=== PATIENT | male | born 1945 | race Caucasian/White ===

== ENCOUNTER 2016-07-14 17:57 | Emergency (ER) | payer OTHER ==
[~2016-07-14] VITALS: Ht 182.9 cm; Wt 84.4 kg
[2016-07-14 18:21] VITALS: Ht 182.9 cm; Wt 84.4 kg
--- NOTE | 2016-07-14 20:11 | EMERGENCY ROOM VISIT NOTE ---
History Report prepared by Jason: Poli Rapp Under the Supervision of: Dr. Arturo Badillo D.O. First contact with patient: 19:33 Chief Complaint: URINARY SYMPTOMS Stated Complaint: URINARY RETENTION,BURN Nursing Triage Summary: they removed a urinary catheter last . they put me on pyridium culture is negative. Edgar on antibiotics. painful to urinate. taking tylenol for intermittent fevers. tylenol taken at 4 pm today History of Present Illness The patient is a 70 year old male who presents to the Emergency Room with complaints of difficulty urinating that began one week prior to arrival. He is also complaining of persistent fevers of 101 degrees orally. He rates his pain with urination as a 10/10 in severity. The patient had a Andrew catheter removed one week ago that was placed following surgery for an abdominal aneurysm. There was no fistula. Two stents were placed during this surgery. Now the patient cannot urinate without exertion and his volume of void is decreased. He is also complaining of testicular pain when he sits down. Source of History: patient Onset: 1 week [employer] Position: other (Genitourinary) Symptom Intensity: 10/10 Associated Symptoms: + fevers Note: Testicular pain when sitting Review of Systems See above for pertinent positives & negatives. A total of 10 systems reviewed and were otherwise negative. Past Medical & Surgical AAA (abdominal aortic aneurysm) Family History Diabetes mellitus Heart disease Social History Smoking Status: Never Smoker Marital Status: Housing Status: lives with significant other Occupation Status: retired Current/Historical Medications Scheduled Alfuzosin Hcl (Uroxatral), 10 MG PO QAM Aspirin (Aspirin Ec), 81 MG PO QAM Clopidogrel (Plavix), 75 MG PO QAM Docusate Sodium (Docusate Sodium), 1 CAP PO BID Dutasteride (Avodart), 0.5 MG PO QAM Esomeprazole Magnesium (Nexium), 40 MG PO QAM Glucosamine-Chondroitin (Osteo Bi-Flex Regular Str), 1 TAB PO QAM Lisinopril (Lisinopril), 5 MG PO QAM Magnesium Oxide (Mag-Ox), 400 MG PO BID Rosuvastatin Calcium (Crestor), 5 MG PO QAM Scheduled PRN Oxycodone/Acetaminophen 5MG/325MG (Percocet 5MG/325MG), 1 TABLET PO Q4H PRN for Pain Allergies Coded Allergies: Gluten (Verified Allergy, Severe, GI UPSET, 07/14/16) Physical Exam Vital Signs Date Time Temp Pulse Resp B/P Pulse Ox O2 Delivery O2 Flow Rate FiO2 07/14/16 22:11 57 18 125/65 95 Room Air 07/14/16 18:21 36.6 63 18 114/72 96 Room Air Physical Exam GENERAL: Patient is well appearing and in no acute distress. HEENT: No acute trauma, normocephalic atraumatic, mucous membranes moist, no nasal congestion, no scleral icterus. NECK: No stridor, no adenopathy, no meningismus, trachea is midline. LUNGS: No dyspnea. Clear to auscultation and equal bilaterally. No wheeze, no rhonchi. HEART: Regular rate and rhythm. No murmurs, rubs, gallops appreciated. ABDOMEN: There is an incision in the RLQ, well approximated, clean, dry, and intact. Soft, nontender, bowel sounds positive, no masses appreciated, no peritonitis. BACK: No midline tenderness, no CVA tenderness EXTREMITIES: Normal motion all extremities, no cyanosis, no edema. NEUROLOGIC: Alert and oriented, no acute motor or sensory deficits, no focal weakness, cranial nerves grossly intact. SKIN: No rash, no jaundice, no diaphoresis. GENITOURINARY: Normal circumcised male. Bruising over the shaft of his penis. No hernia on exam. Medical Decision & Procedures Laboratory Results 07/14/16 20:20 Red Blood Count 3.86, Mean Corpuscular Volume 89.6, Mean Corpuscular Hemoglobin 30.8, Mean Corpuscular Hemoglobin Concent 34.4, Mean Platelet Volume 9.8, Neutrophils (%) (Auto) 60.3, Lymphocytes (%) (Auto) 21.4, Monocytes (%) (Auto) 17.2, Eosinophils (%) (Auto) 0.6, Basophils (%) (Auto) 0.1, Neutrophils # (Auto ) 6.28, Lymphocytes # (Auto) 2.23, Monocytes # (Auto) 1.79, Eosinophils # (Auto ) 0.06, Basophils # (Auto) 0.01 07/14/16 20:20 Test 07/14/16 20:15 07/14/16 20:20 Urine Color DK YELLOW Urine Appearance CLEAR (CLEAR) Urine pH 7.0 (4.5-7.5) Urine Specific Joes 1.012 (1.000-1.030) Urine Protein NEG (NEG) Urine Glucose (UA) NEG (NEG) Urine Ketones NEG (NEG) Urine Occult Blood NEG (NEG) Urine Nitrite NEG (NEG) Urine Bilirubin NEG (NEG) Urine Urobilinogen NEG (NEG) Urine Leukocyte Esterase NEG (NEG) White Blood Count 10.41 K/uL (4.8-10.8) Red Blood Count 3.86 M/uL (4.7-6.1) Hemoglobin 11.9 g/dL (14.0-18.0) Hematocrit 34.6 % (42-52) Mean Corpuscular Volume 89.6 fL (80-100) Mean Corpuscular Hemoglobin 30.8 pg (25-34) Mean Corpuscular Hemoglobin Concent 34.4 g/dl (32-36) Platelet Count 383 K/uL (130-400) Mean Platelet Volume 9.8 fL (7.4-10.4) Neutrophils (%) (Auto) 60.3 % Lymphocytes (%) (Auto) 21.4 % Monocytes (%) (Auto) 17.2 % Eosinophils (%) (Auto) 0.6 % Basophils (%) (Auto) 0.1 % Neutrophils # (Auto) 6.28 K/uL (1.4-6.5) Lymphocytes # (Auto) 2.23 K/uL (1.2-3.4) Monocytes # (Auto) 1.79 K/uL (0.11-0.59) Eosinophils # (Auto) 0.06 K/uL (0-0.5) Basophils # (Auto) 0.01 K/uL (0-0.2) RDW Standard Deviation 40.5 fL (36.4-46.3) RDW Coefficient of Variation 12.5 % (11.5-14.5) Immature Granulocyte % (Auto) 0.4 % Immature Granulocyte # (Auto) 0.04 K/uL (0.00-0.02) Anion Gap 8.0 mmol/L (3-11) Est Creatinine Clear Calc Drug Dose 91.6 ml/min Estimated GFR () 103.4 Estimated GFR (Non- 89.2 BUN/Creatinine Ratio 10.2 (10-20) Lactic Acid Level 2.1 mmol/L (0.4-2.0) Calcium Level 8.8 mg/dl (8.5-10.1) Total Bilirubin 0.3 mg/dl (0.2-1) Direct Bilirubin 0.1 mg/dl (0-0.2) Aspartate Amino Transf (AST/SGOT) 39 U/L (15-37) Alanine Aminotransferase (ALT/SGPT) 56 U/L (12-78) Alkaline Phosphatase 82 U/L (45-117) Total Protein 7.8 gm/dl (6.4-8.2) Albumin 2.7 gm/dl (3.4-5.0) Lipase 143 U/L (73-393) Laboratory results as reviewed by me. Medications Administered Medications (Trade) Dose Ordered Sig/Willian Route Start Time Stop Time Status Last Admin Dose Admin Hydromorphone HCl (Dilaudid Inj) 0.5 mg NOW STAT IV 07/14/16 21:18 07/14/16 21:20 DC 07/14/16 22:07 0.5 MG ED Course 1951: The patient was evaluated in room C10. A complete history and physical exam was performed. 2117: Ordered Dilaudid 0.5 mg IV. 2142: I checked on the patient at this time, he was resting in bed. Medical Decision Differential diagnosis: Etiologies such as torsion, mass, infection, hernia, hydrocele, epididymitis, trauma, intra-abdominal process, as well as others were entertained. Patient is a 70-year-old male who 8 days ago underwent an elective endovascular repair of a infrarenal AAA. During that time he had a Andrew catheter placed. 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 Since that time he has been seen by his primary care physician who completed a urine, has sent a urine culture which was reported to be normal and started on cefuroxime. He is on a twice a day dosing has taken a total of 6 doses. She has been taking his temperature which has been low grade, however earlier today he had a temp of 101 orally. He denies chest pain, shortness of breath, cough. His main complaint is burning with urination when he stands. He has not had significant relief with Pyridium that was previously prescribed by his primary care physician. He is able to eat, passing gas, and is able to urinate. He is having difficulty starting his urine stream and they're only small amounts. There is no reported hematuria Physical exam today the patient is not tachycardic he has clear lungs to auscultation there is no oxygen requirement. He is afebrile during his stay here. He has a small incision over the right lower quadrant which is clean dry and intact. There is no tenderness to palpation of the abdomen, no suprapubic tenderness. He has normal external male genitalia, there is purple ecchymoses around the shaft. He does not have an inguinal hernia. There is no ecchymoses and scrotum nor the peroneal area. There is no tenderness to palpation of the peroneal area, rectal exam was deferred. Laboratory examination did not reveal a white count, he has mild hyponatremia. He was given IV fluids. He is a patient of Dr. Bernstein. Dr. Ness was electronic equipment repairer for his service. I discussed the case with Dr. Ness, Dr. Ness stressed that his concern is that he has a fever of 101 without obvious source of urinary tract infection, and no elevated white count. His concern is possible source of infection. His recommendation is to change the patient's antibiotics to ciprofloxacin and given a dose of gentamicin. Patient was given 400 mg of ciprofloxacin IV, he has been loaded with 7 mg/kg of gentamicin IV, and his creatinine clearance is 96-99 placing his expected gentamicin dosing at 24 hours. Blood cultures and repeat urine culture were initially obtained. Patient's lactic acid is 2.1 which is not indicative of sepsis. There is no evidence of end organ dysfunction. The patient himself does not want to be admitted to the hospital. I've advised the patient to follow-up with the urology office tomorrow. The patient has been on Pyridium, I am not reordering the Pyridium due to the risk of inducing methemoglobinemia, I suspect his pre-existing anemia is postoperative blood loss due to the recent endovascular AAA repair. He also reports that the Pyridium has not done anything for his symptomatology. I have discussed reasons for follow-up extensively with the patient and his . He is discharged home in improved stable condition. Impression Primary Impression: Dysuria Additional Impressions: Fever Postoperative anemia Scribe Attestation The scribe's documentation has been prepared under my direction and personally reviewed by me in its entirety. I confirm that the note above accurately reflects all work, treatment, procedures, and medical decision making performed by me. Departure Information Dispostion Home / Self-Care Prescriptions Ciprofloxacin Hcl (CIPRO) 500 Mg Tab 500 MG PO BID, #28 TAB Prov: Arturo Badillo, D.O. 07/14/16 Referrals Chao Valdivia M.D. (PCP) Patient Instructions ED UTI Cystitis Male, My [facility] Additional Instructions Call the urology office tomorrow for follow-up. Return to the emergency department if you feel worse, have a fever greater than 100.5, cannot urinate, or any other concerns. Stop taking the Ceftin and take ciprofloxacin. Problem Qualifiers
[2016-07-14] MEDS ORDERED: DOCU100C31 PO (20:26)
[2016-07-14] MEDS ORDERED: OXYC-57 PO (20:26)
[2016-07-14] MEDS ORDERED: GLUCTAB18 PO (20:26)
[2016-07-14] MEDS ORDERED: LSN5 PO (20:26)
[2016-07-14] MEDS ORDERED: ROSU5TAB PO (20:26)
[2016-07-14] MEDS ORDERED: NXM/40 PO (20:26)
[2016-07-14] MEDS ORDERED: ASPI81TA28 PO (20:26)
[2016-07-14] MEDS ORDERED: DUTA0.5C PO (20:26)
[2016-07-14] MEDS ORDERED: CLOP1TAB15 PO (20:26)
[2016-07-14] MEDS ORDERED: MAGN400T6 PO (20:26)
[2016-07-14] MEDS ORDERED: ALFU10TA30 PO (20:26)
[2016-07-14 20:34] LABS: HEMATOCRIT 34.6 % (42-52); MEAN CELL VOLUME 89.6 fL (80-100); MEAN CORPUSCULAR HEMOGLOBIN 30.8 pg (25-34); MEAN CORPUSCULAR HGB CONC 34.4 g/dl (32-36); MEAN PLATELET VOLUME 9.8 fL (7.4-10.4); PLATELET COUNT 383 K/uL (130-400); RED BLOOD COUNT 3.86 M/uL (4.7-6.1); WHITE BLOOD COUNT 10.41 K/uL (4.8-10.8)
[2016-07-14 20:53] LABS: URINE APPEARANCE CLEAR (CLEAR); URINE BILIRUBIN NEG (NEG); URINE COLOR DK YELLOW; URINE NITRITE NEG (NEG); URINE SPECIFIC GRAVITY 1.012 (1.000-1.030); UROBILINOGEN NEG (NEG); ZZUR CULT IF INDIC CLEAN CATCH NO
[2016-07-14 20:54] LABS: BUN/CREATININE RATIO 10.2 (10-20); CALCIUM 8.8 mg/dl (8.5-10.1); CREATININE 0.8 mg/dl (0.60-1.40); POTASSIUM 4.3 mmol/L (3.5-5.1)
[2016-07-14 20:57] LABS: MANUAL MICROSCOPIC REQUIRED? NO; REVIEW REQ? NO
[2016-07-14 21:05] LABS: BASO % 0.1 %; BASO ABS # 0.01 K/uL (0-0.2); COMPLETE YES; EOS % 0.6 %; IG% 0.4 %; LYMPH % 21.4 %; LYMPH ABS # 2.23 K/uL (1.2-3.4); MONO % 17.2 %; NEUT % 60.3 %
[2016-07-14] MEDS ORDERED: HYDROmorphone INJ 0.5 MG/0.5 ML SYR IV STA (21:18)
[2016-07-14] MEDS ORDERED: CIPROFLOXACIN 400MG / 200ML D5W IV STA (22:32)
[2016-07-14] MEDS ORDERED: CIPR-255 PO (23:27)
[2016-07-14] MEDS ORDERED: GENTAMICIN INJ 600 MG in DEXTROSE 5% 100ML 100 ML IV STA (23:42)
[2016-07-14] MEDS ORDERED: SODIUM CHLORIDE 0.9% 1000ML 1,000 ML IV STA (23:51)
[2016-07-15 02:06] VITALS: BP 138/64; PULSE 59; TEMP 37.6; O2SAT 94
--- NOTE | 2016-07-15 06:40 | DIAGNOSTIC IMAGING REPORT ---
CHEST 2 VIEWS ROUTINE CLINICAL HISTORY: fever cough COMPARISON STUDY: No previous studies for comparison. FINDINGS: The bones soft tissues and hemidiaphragms are normal. The cardiomediastinal silhouette is normal. The lungs are clear. The pulmonary vasculature is normal. IMPRESSION: Negative chest. Electronically signed by: Gino Diaz M.D. 07/15/2016 6:38 AM Dictated Date/Time: 07/15/2016 6:37 AM
== END 2016-07-15 00:20 | disposition home or self-care (01) ==
LOC: C.EDB 17:58 → C.EDC 07-15 00:20
DX: R30.0 Dysuria (principal); R50.9 Fever, unspecified; D62 Acute posthemorrhagic anemia

== ENCOUNTER → 2017-04-06 | Outpatient (CLI) | payer OTHER ==
[~2017-04-06] MED LIST: ALFU10TA2 PO; ASPI81TA28 PO; CIPR-255 PO; CLOP1TAB15 PO; DOCU100C31 PO; DUTA0.5C PO; GADAVIST IV PRN; GLUCTAB18 PO; LSN5 PO; MAGN400T6 PO; NXM/40 PO; OXYC-57 PO; ROSU5TAB PO
--- NOTE | 2017-04-06 12:35 | DIAGNOSTIC IMAGING REPORT ---
PROSTATE MRI COMBO CLINICAL HISTORY: 71 years-old Male presenting with ELEVATED PSA. TECHNIQUE: Multisequence, multiplanar MR imaging of the prostate was performed before and after the administration of intravenous contrast. Additional postprocessing was performed on a separate [employer] workstation by the radiologist for 3-D volumetric segmentation of the prostate and contouring of region(s) of interest (ANNIKA) for targeting. IV contrast: 8 cc of Gadavist. COMPARISON: No priors.. FINDINGS: Prostate: The prostate measures 5.2 cm in transverse diameter. There is median lobe hypertrophy (JackrabbitaCAD prostate boundary segmentation volume 64.5 cc). Moderate to severe changes of benign prostatic hyperplasia are identified. Precontrast T1 weighted imaging demonstrates no evidence of intrinsic T1 hyperintensity to suggest hemorrhage. Seminal vesicles normal. Suspicious lesion(s) described below: Lesion (DynaCAD ANNIKA) 1: Location: Left anterior transition zone at the mid gland. The lesion does not extend across the midline. Size: 16 mm (as measured on ADC for PZ lesion and T2WI for TZ lesion) T2W: Ill-defined T2 hypointense. DWI: 2. Indistinct hypointense on ADC. DCE: Positive. Focal enhancement corresponding to a suspicious finding, earlier or contemporaneous with adjacent normal tissue. PI-RADS: 3. The presence of clinically significant cancer is equivocal. Bladder: The bladder wall is thickened and trabeculated consistent with chronic outlet obstruction. Bowel: Visualized portion of the rectum normal. Peritoneum: No free fluid in the pelvis. Fluid is noted along the right inguinal canal. Lymph nodes: No lymphadenopathy in the visualized portion of the pelvis. Vasculature: Iliac vessels patent. Osseous structures: Normal bone marrow signal intensity. IMPRESSION: 1. Question a lesion in the left anterior transition zone in the mid gland. PI-RADS 3. The presence of clinically significant cancer is equivocal. This lesion has been segmented for targeted biopsy. 2. Moderate to severe benign prostatic hyperplasia. 3. The appearance of the bladder is consistent with chronic outlet obstruction. Electronically signed by: Karan Perera M.D. 04/06/2017 12:34 PM Dictated Date/Time: 04/06/2017 12:08 PM
== END | disposition home or self-care (01) ==
LOC: C.MRIBC 10:13
PROVIDERS: ATTEND Urology
DX: R97.20 Elevated prostate specific antigen [PSA] (principal)

== ENCOUNTER → 2017-06-15 | Outpatient (CLI) | payer OTHER ==
[~2017-06-15] MED LIST changes: -GADAVIST IV PRN
== END | disposition home or self-care (01) ==
LOC: C.PATHSPEC 17:32
PROVIDERS: ATTEND Urology
DX: R97.20 Elevated prostate specific antigen [PSA] (principal)

== ENCOUNTER → 2017-12-26 | Outpatient (CLI) | payer OTHER ==
[~2017-12-26] MED LIST changes: +LISI-730 PO; -LSN5 PO
== END | disposition home or self-care (01) ==
LOC: C.RDSM 09:00
PROVIDERS: ATTEND Physical Medicine & Rehabilitation Sports Medicine
DX: M25.552 Pain in left hip (principal)